=== PATIENT | female | born 1995 | race Caucasian/White ===

== ENCOUNTER 2017-08-21 20:35 | Emergency (ER) | payer BC, OTHER ==
[2017-08-21 20:42] VITALS: BMI 25.2
[2017-08-21 20:49] VITALS: TEMP 100.1
[2017-08-21] MEDS ORDERED: Sodium Chloride 0.9% 1,000 ML IV STA (20:51)
[2017-08-21] MEDS ORDERED: Morphine 4 mg/ml ISec IVP STA (20:51)
--- NOTE | 2017-08-21 20:59 | ED PDOC ---
Arrival/HPI - General Chief Complaint: Dental Pain Time Seen by Provider: 08/21/17 20:51 Historian: Patient - History of Present Illness Narrative History of Present Illness (Text): 08/21/17 20:50 Velma Polo is a 22 year old female, who presents to the emergency department complaining of lower jaw pain today since she had two wisdom teeth removed. Patient reports she has pain and swelling and has been taking tylenol and codeine and antibiotics that were prescribed by her dentist today. Patient denies any fever, headache, shortness of breath, nausea, vomiting or other complaints. 08/21/17 22:26 Time/Duration: 4-6 hours Symptom Onset: Sudden Symptom Course: Unchanged Past Medical History - Provider Review Nursing Documentation Reviewed: Yes - Past History Past History: No Previous - Infectious Disease Hx of Infectious Diseases: None - Tetanus Immunization Tetanus Immunization: Up to Date - Past Medical History Past Medical History: No Previous - Pulmonary Hx Respiratory Disorders: No - Psychiatric Hx Psychophysiologic Disorder: No Hx Anxiety: No Hx Bipolar Disorder: No Hx Depression: No Hx Emotional Abuse: No Hx Hallucinations: No Hx Panic Disorder: No Hx Post Traumatic Stress Disorder: No Hx Psychosis: No Hx Physical Abuse: No Hx Schizophrenia: No Hx Sexual Abuse: No Hx Substance Use: Yes - Past Surgical History Past Surgical History: No Previous - Anesthesia Hx Anesthesia: No Hx Anesthesia Reactions: No Hx Malignant Hyperthermia: No - Suicidal Assessment Feels Threatened In Home Enviroment: No Family/Social History - Physician Review Nursing Documentation Reviewed: Yes Family/Social History: Unknown Family HX Smoking Status: Current Some Days Smoker Hx Alcohol Use: Yes Frequency of alcohol use: Socially Hx Substance Use: Yes Substance used: marijuana Hx Substance Use Treatment: No Allergies/Home Meds Allergies/Adverse Reactions: Allergies No Known Allergies Allergy (Verified 07/30/14 02:06) Home Medications: Home Meds Medication Instructions Recorded Confirmed Acetaminophen with Codeine 1 tab PO Q4H PRN 08/21/17 08/21/17 [Tylenol with Codeine #3 Tablet] Amoxicillin [Amoxil 500 mg Cap] 1 cap PO TID 08/21/17 08/21/17 Review of Systems - Review of Systems Constitutional: absent: Fevers ENT: Other (2 wisdome teeth removed today from lower jaw) Respiratory: absent: SOB, Cough Cardiovascular: absent: Chest Pain Gastrointestinal: absent: Abdominal Pain, Diarrhea, Nausea, Vomiting Genitourinary Female: absent: Dysuria, Frequency Musculoskeletal: absent: Back Pain, Neck Pain Neurological: absent: Headache, Dizziness Physical Exam Vital Signs Reviewed: Yes Vital Signs Temp Pulse Resp BP Pulse Ox 08/21/17 22:25 76 18 128/74 99 08/21/17 20:48 100.1 F H 65 20 126/90 100 Temperature: Febrile Blood Pressure: Normal Pulse: Regular Respiratory Rate: Normal Appearance: Positive for: Well-Appearing, Non-Toxic, Comfortable Pain Distress: None Mental Status: Positive for: Alert and Oriented X 3 - Systems Exam Head: Present: Atraumatic, Normocephalic Pupils: Present: PERRL Conjunctiva: Present: Normal Mouth: Present: Moist Mucous Membranes, Normal Tounge, Normal Teeth, Other (one surgical incision to left lower posterior tooth. no erythema or discharge. Lower facial swelling) Pharnyx: No: ERYTHEMA, EXUDATE, Peritonsilar Swelling Neck: Present: Normal Range of Motion Lower Extremity: Present: Normal Inspection. No: Edema Neurological: Present: GCS=15, CN II-XII Intact, Speech Normal Skin: Present: Warm, Dry, Normal Color. No: Rashes Psychiatric: Present: Alert, Oriented x 3, Normal Insight, Normal Concentration Medical Decision Making ED Course and Treatment: 08/21/17 Impression: 22 year old female with lower facial swelling and pain s/p wisdom teeth removal today Plan: -- Morphine and Sodium Chloride -- Reassess and disposition Progress Notes: 08/21/17 21:37 Patient was given detailed return instructions. Patient phonating normally, protecting airway and tolerating secretions. Instructed to continue taking antibiotics and pain medication and follow-up with dentist. - Medication Orders Current Medication Orders: Discontinued Medications Sodium Chloride (Sodium Chloride 0.9%) 1,000 mls @ 999 mls/hr IV .Q1H1M STA Stop: 08/21/17 21:51 Last Admin: 08/21/17 21:02 Dose: 999 mls/hr eMAR Start Stop Document 08/21/17 21:02 OSWALDO (Rec: 08/21/17 21:02 OSWALDO [id number]) Intravenous Solution Start Date 08/21/17 Start Time 21:02 End Date 08/21/17 End time 22:02 Total Infusion Time 60 Morphine Sulfate (Morphine) 4 mg IVP STAT STA Stop: 08/21/17 20:52 Last Admin: 08/21/17 21:01 Dose: 4 mg MAR Pain Assessment Document 08/21/17 21:01 OSWALDO (Rec: 08/21/17 21: OSWALDO [id number]) Pain Reassessment Is this a pain reassessment? No IVP Administration Document 08/21/17 21: OSWALDO (Rec: 08/21/17 21: OSWALDO [id number]) Charges for Administration # of IVP Administrations 1 - Scribe Statement The provider has reviewed the documentation as recorded by the Scribe Flores Johnson Provider Scribe Attestation: All medical record entries made by the Scribe were at my direction and personally dictated by me. I have reviewed the chart and agree that the record accurately reflects my personal performance of the history, physical exam, medical decision making, and the department course for this patient. I have also personally directed, reviewed, and agree with the discharge instructions and disposition. Disposition/Present on Arrival - Present on Arrival Any Indicators Present on Arrival: No History of DVT/PE: No History of Uncontrolled Diabetes: No Urinary Catheter: No History of Decub. Ulcer: No History Surgical Site Infection Following: None - Disposition Have Diagnosis and Disposition been Completed?: Yes Diagnosis: S/P wisdom tooth extraction, Mouth pain Disposition: HOME/ ROUTINE Disposition Time: 21:39 Patient Plan: Discharge Condition: GOOD Additional Instructions: Take full course of antibiotics. Take percocet instead of tylenol with codeine as needed for pain. Return to ED if condition worsens. Follow-up with dentist within 2 days. Prescriptions: oxyCODONE/Acetaminophen [Percocet 5/325 mg Tab] 1 ea PO Q6 PRN #10 tab PRN Reason: Pain, Severe (8-10) Referrals: PCP,NO [Primary Care Provider] - Follow up with primary Forms: [employer] ([place]inyar[place]anda), WORK NOTE
[2017-08-21 22:26] VITALS: BP 128/74; PULSE 76; RESP 18; O2SAT 99
== END 2017-08-21 22:24 | disposition home or self-care (01) ==
LOC: ED 20:35
DX: K13.79 Other lesions of oral mucosa (principal); K08.409 Partial loss of teeth, unspecified cause, unspecified class
CPT/HCPCS: 96361; 96374; 99282; J2270; J7040

== ENCOUNTER 2018-06-27 09:57 | Emergency (ER) | payer BC, MEDICAID ==
[2018-06-27 10:19] VITALS: RESP 18; BMI 23.0
[2018-06-27] MEDS ORDERED: Albuterol-Ipratrop 3 mg / 0.5 (3 ml) UD IH STA (10:23)
--- NOTE | 2018-06-27 10:24 | ED PDOC ---
Arrival/HPI - General Chief Complaint: Cough, Cold, Congestion Time Seen by Provider: 06/27/18 10:21 Historian: Patient - History of Present Illness Narrative History of Present Illness (Text): 06/27/18 10:23 This 23 yo female who presents to this ED c/o cough, wheezing, chest congestion x 2 weeks. Patient denies sob, cp, fever, recent travel, sick contact, skin rash, or abnormal gait. Patient has never been hospitalized for asthma, or intubated. PERC negative for PE Time/Duration: Other (see hpi) Context: Home Past Medical History - Provider Review Nursing Documentation Reviewed: Yes - Past History Past History: No Previous - Infectious Disease Hx of Infectious Diseases: None - Tetanus Immunization Tetanus Immunization: Up to Date - Past Medical History Past Medical History: No Previous - Pulmonary Hx Asthma: Yes - Psychiatric Hx Psychophysiologic Disorder: No Hx Anxiety: No Hx Bipolar Disorder: No Hx Depression: No Hx Emotional Abuse: No Hx Hallucinations: No Hx Panic Disorder: No Hx Post Traumatic Stress Disorder: No Hx Psychosis: No Hx Physical Abuse: No Hx Schizophrenia: No Hx Sexual Abuse: No Hx Substance Use: Yes - Past Surgical History Past Surgical History: No Previous - Anesthesia Hx Anesthesia: No Hx Anesthesia Reactions: No Hx Malignant Hyperthermia: No - Suicidal Assessment Feels Threatened In Home Enviroment: No Family/Social History - Physician Review Nursing Documentation Reviewed: Yes Family/Social History: Other (noncontributory) Smoking Status: Former Smoker Hx Alcohol Use: Yes Frequency of alcohol use: Socially Hx Substance Use: Yes Substance used: marijuana Hx Substance Use Treatment: No Allergies/Home Meds Allergies/Adverse Reactions: Allergies No Known Allergies Allergy (Verified 07/30/14 02:06) Home Medications: Home Meds Medication Instructions Recorded Confirmed Fluticasone Propionate [Flovent 44 mcg IH PRN PRN 06/27/18 06/27/18 Hfa] Review of Systems - Review of Systems Constitutional: Normal. absent: Fatigue, Weight Change, Fevers Eyes: Normal ENT: Normal Respiratory: Cough, Wheezing. absent: SOB, Sputum Cardiovascular: Normal Gastrointestinal: Normal Genitourinary Female: Normal Musculoskeletal: Normal Skin: Normal Neurological: Normal Endocrine: Normal Hemo/Lymphatic: Normal Psychiatric: Normal Physical Exam Vital Signs Temp Pulse Resp BP Pulse Ox 06/27/18 10:10 97.9 F 76 18 141/84 99 Temperature: Afebrile Blood Pressure: Normal Pulse: Regular Respiratory Rate: Normal Appearance: Positive for: Well-Appearing, Non-Toxic, Comfortable Pain Distress: None Mental Status: Positive for: Alert and Oriented X 3 - Systems Exam Head: Present: Atraumatic, Normocephalic Pupils: Present: PERRL Extroacular Muscles: Present: EOMI Conjunctiva: Present: Normal Mouth: Present: Moist Mucous Membranes Neck: Present: Normal Range of Motion Respiratory/Chest: Present: Wheezes. No: Respiratory Distress, Accessory Muscle Use, Decreased Breath Sounds, Rales, Retracting, Rhonchi, Tachypneic, Tender to Palpation Cardiovascular: Present: Regular Rate and Rhythm, Normal S1, S2. No: Murmurs Abdomen: No: Tenderness, Distention, Peritoneal Signs, Rebound, Guarding Back: Present: Normal Inspection. No: CVA Tenderness Upper Extremity: Present: Normal Inspection, Normal ROM. No: Cyanosis, Edema Lower Extremity: Present: Normal Inspection, Normal ROM. No: Edema Neurological: Present: GCS=15, CN II-XII Intact, Speech Normal Skin: Present: Warm, Dry, Normal Color. No: Rashes Psychiatric: Present: Alert, Oriented x 3, Normal Insight, Normal Concentration Medical Decision Making ED Course and Treatment: 06/27/18 12:20 Re-evaluation. Patient feels better. Discussed results and plan with patient who expresses understanding. All questions answered and there is agreement with the plan to discharge home with instructions. Patient stable for discharge. Return if symptoms persist or worsen. 06/27/18 12:35 I reviewed risk of taking Prednisone not yeimy but including AVN, dm, glaucoma, osteoporosis. Patient understood risk, and agreed to take medication. Re-evaluation Time: 12:22 Reassessment Condition: Re-examined, Improved - RAD Interpretation Radiology Orders: 06/27/18 10:22 CHEST TWO VIEWS (PA/LAT) [RAD] Stat - Medication Orders Current Medication Orders: Discontinued Medications Albuterol/Ipratropium (Duoneb 3 Mg/0.5 Mg (3 Ml) Ud) 3 ml IH STAT STA Stop: 06/27/18 10:24 Last Admin: 06/27/18 10:43 Dose: 3 ml Prednisone (Prednisone Tab) 60 mg PO STAT ONE Stop: 06/27/18 10:24 Last Admin: 06/27/18 10:43 Dose: 60 mg Disposition/Present on Arrival - Present on Arrival Any Indicators Present on Arrival: No History of DVT/PE: No History of Uncontrolled Diabetes: No Urinary Catheter: No History of Decub. Ulcer: No History Surgical Site Infection Following: None - Disposition Have Diagnosis and Disposition been Completed?: Yes Diagnosis: Asthma exacerbation Disposition: HOME/ ROUTINE Disposition Time: 12:24 Patient Plan: Discharge Condition: GOOD Discharge Instructions (ExitCare): Asthma, Adult (DC) Additional Instructions: Call private doctor for follow up visit in 1-2 days. Take medication as instructed. Return to emergency if symptoms worsen. Prescriptions: Albuterol Sulfate [Ventolin Hfa] 2 puff IH Q6H PRN #1 packet PRN Reason: Wheezing predniSONE [predniSONE Tab] 40 mg PO DAILY #6 tab Referrals: Phi Carter MD [Primary Care Provider] - Follow up with primary Forms: [employer] (Greenlandic)
[2018-06-27 12:27] VITALS: O2SAT 100
[2018-06-27 12:45] VITALS: BP 138/83; PULSE 70; TEMP 98
--- NOTE | 2018-06-27 16:03 | RAD ---
Date of service: 06/27/2018 HISTORY: cough COMPARISON: Comparison chest 10/02/2014 TECHNIQUE: Chest PA and lateral FINDINGS: LUNGS: No active pulmonary disease. PLEURA: No significant pleural effusion identified. No pneumothorax apparent. CARDIOVASCULAR: Normal. OSSEOUS STRUCTURES: No significant abnormalities. VISUALIZED UPPER ABDOMEN: Normal. OTHER FINDINGS: None. IMPRESSION: No active disease.
== END 2018-06-27 12:45 | disposition home or self-care (01) ==
LOC: ED 09:57
DX: J45.901 Unspecified asthma with (acute) exacerbation (principal); Z87.891 Personal history of nicotine dependence

== ENCOUNTER 2018-07-15 09:48 | Emergency (ER) | payer MEDICAID, OTHER ==
[2018-07-15 10:20] VITALS: BMI 23.9
[2018-07-15 10:24] VITALS: TEMP 98.5
[2018-07-15] MEDS ORDERED: Famotidine 20mg/50ml 20 MG in Premixed IV 50 EA IVPB STA (10:48)
--- NOTE | 2018-07-15 10:59 | ED PDOC ---
Arrival/HPI - General Chief Complaint: GI Problem Time Seen by Provider: 07/15/18 10:44 Historian: Patient - History of Present Illness Narrative History of Present Illness (Text): 07/15/18 10:44 23 year old female, with no significant past medical history, presents to the emergency department complaining of nausea and vomiting that began yesterday. Patient's last menstrual period was a month ago and it was normal. Patient denies any fever, chills, chest pain, shortness of breath, abdominal pain, diarrhea, urinary symptoms, back pain, neck pain, headache, dizziness, or any other complaints. Time/Duration: 24 hours Symptom Onset: Gradual Symptom Course: Unchanged Activities at Onset: Light Context: Home Past Medical History - Provider Review Nursing Documentation Reviewed: Yes - Past History Past History: No Previous - Infectious Disease Hx of Infectious Diseases: None - Tetanus Immunization Tetanus Immunization: Up to Date - Past Medical History Past Medical History: No Previous - Cardiac Hx Cardiac Disorders: Yes - Pulmonary Hx Asthma: Yes - Psychiatric Hx Psychophysiologic Disorder: No Hx Anxiety: No Hx Bipolar Disorder: No Hx Depression: No Hx Emotional Abuse: No Hx Hallucinations: No Hx Panic Disorder: No Hx Post Traumatic Stress Disorder: No Hx Psychosis: No Hx Physical Abuse: No Hx Schizophrenia: No Hx Sexual Abuse: No Hx Substance Use: Yes - Past Surgical History Past Surgical History: No Previous - Anesthesia Hx Anesthesia: No Hx Anesthesia Reactions: No Hx Malignant Hyperthermia: No - Suicidal Assessment Feels Threatened In Home Enviroment: No Family/Social History - Physician Review Nursing Documentation Reviewed: Yes Family/Social History: No Known Family HX Smoking Status: Current Some Days Smoker Hx Alcohol Use: Yes Hx Substance Use: Yes Substance used: marijuana Hx Substance Use Treatment: No Allergies/Home Meds Allergies/Adverse Reactions: Allergies No Known Allergies Allergy (Verified 07/15/18 10:24) Home Medications: Home Meds Medication Instructions Recorded Confirmed Fluticasone Propionate [Flovent 44 mcg IH PRN PRN 06/27/18 07/15/18 Hfa] Review of Systems - Review of Systems Constitutional: absent: Fevers, Other (Chills) Respiratory: absent: SOB Cardiovascular: absent: Chest Pain Gastrointestinal: Nausea, Vomiting. absent: Abdominal Pain, Diarrhea Genitourinary Female: absent: Dysuria, Frequency, Hematuria Musculoskeletal: absent: Back Pain, Neck Pain Neurological: absent: Headache, Dizziness Physical Exam Vital Signs Reviewed: Yes Vital Signs Temp Pulse Resp BP Pulse Ox 07/15/18 14:25 67 18 117/62 97 07/15/18 12:32 64 16 110/65 100 07/15/18 10:19 98.5 F 68 18 124/85 97 Temperature: Afebrile Blood Pressure: Normal Pulse: Regular Respiratory Rate: Normal Appearance: Positive for: Well-Appearing, Non-Toxic, Comfortable Pain Distress: None Mental Status: Positive for: Alert and Oriented X 3 - Systems Exam Head: Present: Atraumatic, Normocephalic Pupils: Present: PERRL Extroacular Muscles: Present: EOMI Conjunctiva: Present: Normal Mouth: Present: Moist Mucous Membranes Neck: Present: Normal Range of Motion Respiratory/Chest: Present: Clear to Auscultation, Good Air Exchange. No: Respiratory Distress, Accessory Muscle Use Cardiovascular: Present: Regular Rate and Rhythm, Normal S1, S2. No: Murmurs Abdomen: No: Tenderness, Distention, Peritoneal Signs Back: Present: Normal Inspection Upper Extremity: Present: Normal Inspection. No: Cyanosis, Edema Lower Extremity: Present: Normal Inspection. No: Edema Neurological: Present: GCS=15, CN II-XII Intact, Speech Normal Skin: Present: Warm, Dry, Normal Color. No: Rashes Psychiatric: Present: Alert, Oriented x 3, Normal Insight, Normal Concentration Medical Decision Making ED Course and Treatment: 07/15/18 10:44 Impression: 23 year old female presents complaining of nausea and vomiting that began yesterday. Plan: -- Labs -- Pepcid, Zofran Inj -- Urine Culture -- HCG, Qualitative urine, Urinalysis -- Transvaginal US -- Reassess and disposition Progress Notes: PROCEDURE: Transvaginal US Dictator : Bayron Schrader MD Report Date : 07/15/2018 14:13:44 IMPRESSION: 4 mm questionable intrauterine gestational sac without identifiable pole or yolk sac. Out of range for determination of age. No subchorionic hemorrhage. Follow-up with transvaginal pelvic ultra sound and serial beta HCG advised. 07/15/18 15:06 Patient was informed that she is and recommended to followup with OB/ [facility]. On re-evaluation, patient feels better and is in no acute distress. I have discussed the results and plan with the patient, who expresses understanding. Patient in agreement with plan to be discharged home. Patient is stable for discharge. Patient was instructed to follow up with physician or return if symptoms worsen or new concerning symptoms arise. - Lab Interpretations Lab Results: 07/15/18 11:40 07/15/18 11:40 Lab Results 07/15/18 11:40: Beta HCG, Quant 3399.00 H 07/15/18 11:40: Sodium 139, Potassium 5.3 H, Chloride 103, Carbon Dioxide 27, Anion Gap 13, BUN 9, Creatinine 0.6 L, Est GFR ( Amer) > 60, Est GFR (Non -Af Amer) > 60, Random Glucose 99, Calcium 9.7, Total Bilirubin 0.5, AST 28, ALT 25, Alkaline Phosphatase 76, Total Protein 7.7, Albumin 4.5, Globulin 3.2, Albumin/Globulin Ratio 1.4, Lipase 23 07/15/18 11:40: WBC 8.8, RBC 4.49, Hgb 13.7, Hct 40.9, MCV 91.1, MCH 30.5, MCHC 33.5, RDW 13.6, Plt Count 225, MPV 9.5, Gran % 66.0, Lymph % (Auto) 29.8, [place] % (Auto) 3.7, Eos % (Auto) 0.3 L, Baso % (Auto) 0.2, Gran # 5.82, Lymph # (Auto ) 2.6, [place] # (Auto) 0.3, Eos # (Auto) 0.0, Baso # (Auto) 0.02 07/15/18 10:40: Urine Color Yellow, Urine Appearance Clear, Urine pH 7.0, Ur Specific [place] <= 1.005, Urine Protein Negative, Urine Glucose (UA) Negative, Urine Ketones Negative, Urine Blood Negative, Urine Nitrate Negative, Urine Bilirubin Negative, Urine Urobilinogen 0.2, Ur Leukocyte Esterase Moderate H, Urine RBC 0 - 2, Urine WBC 25 - 30, Ur Epithelial Cells Many, Urine Bacteria Many, Urine HCG, Qual Positive I have reviewed the lab results: Yes - RAD Interpretation Radiology Orders: 07/15/18 13:09 TRANSVAGINAL [US] Stat - Medication Orders Current Medication Orders: Discontinued Medications Famotidine 20 mg/ (Miscellaneous) 50 mls @ 100 mls/hr IVPB STAT STA Stop: 07/15/18 11:17 Last Admin: 07/15/18 12:11 Dose: 100 mls/hr eMAR Start Stop Document 07/15/18 12:11 GMD (Rec: 07/15/18 12:11 GMD [id number]) Intravenous Solution Start Date 07/15/18 Start Time 12:11 End Date 07/15/18 End time 12:41 Total Infusion Time 30 Ceftriaxone Sodium (Rocephin 1 Gram Ivpb) 1 gm in 100 mls @ 200 mls/hr IVPB STAT STA Stop: 07/15/18 12:01 Last Admin: 07/15/18 12:11 Dose: 200 mls/hr eMAR Start Stop Document 07/15/18 12:11 GMD (Rec: 07/15/18 12:11 GMD [id number]) Intravenous Solution Start Date 07/15/18 Start Time 12:11 End Date 07/15/18 End time 12:41 Total Infusion Time 30 Ondansetron HCl (Zofran Inj) 4 mg IVP STAT STA Stop: 07/15/18 10:47 Last Admin: 07/15/18 12:11 Dose: 4 mg IVP Administration Document 07/15/18 12:11 GMD (Rec: 07/15/18 12:11 GMD [id number]) Charges for Administration # of IVP Administrations 1 - Scribe Statement The provider has reviewed the documentation as recorded by the Hannah Thomas Provider Scribe Attestation: All medical record entries made by the Ottonielibblanca were at my direction and personally dictated by me. I have reviewed the chart and agree that the record accurately reflects my personal performance of the history, physical exam, medical decision making, and the department course for this patient. I have also personally directed, reviewed, and agree with the discharge instructions and disposition. Disposition/Present on Arrival - Present on Arrival History of DVT/PE: No History of Uncontrolled Diabetes: No Urinary Catheter: No History of Decub. Ulcer: No History Surgical Site Infection Following: None - Disposition Diagnosis: Urinary tract infection affecting , Early stage of Disposition: HOME/ ROUTINE Patient Problems: Current Active Problems Problem Status Onset Early stage of Acute Urinary tract infection affecting Acute Condition: GOOD Discharge Instructions (ExitCare): Urinary Tract Infection, Adult (DC), - The First Month Additional Instructions: Follow up with Dr [facility] and call for an appointment #[phone] and take macrobid as directed. Prescriptions: Nitrofurantoin Macrocrystals [Macrobid] 100 mg PO Q12 #14 cap Referrals: Luther Nuno MD [Staff Provider] - Follow up with primary Forms: [employer] (Serbian)
[2018-07-15 11:04] LABS: URINE BILIRUBIN NEGATIVE (NEGATIVE); URINE BLOOD NEGATIVE (NEGATIVE); URINE GLUCOSE (UA) NEGATIVE (NEGATIVE); URINE LEUKOCYTE ESTERASE MODERATE Leu/uL (NEGATIVE); URINE PROTEIN NEGATIVE mg/dL (<30 mg/dL); URINE UROBILINOGEN 0.2 E.U./dL (<1 E.U./dL)
[2018-07-15 11:05] LABS: URINE APPEARANCE CLEAR (CLEAR); URINE COLOR YELLOW (YELLOW)
[2018-07-15 11:18] LABS: HCG,QUALITATIVE URINE POSITIVE (NEGATIVE)
[2018-07-15 11:20] LABS: URINE RBC 0 - 2 /hpf (0-2)
[2018-07-15 11:21] LABS: URINE BACTERIA MANY (NEG); URINE EPITHELIAL CELLS MANY /hpf (0-5); URINE WBC 25 - 30 /hpf (0-6)
[2018-07-15] MEDS ORDERED: cefTRIAXone (Rocephin) 2 gm Inj IVPB ONE (11:29)
[2018-07-15] MEDS ORDERED: cefTRIAXone 1 GM/100 ML BAG IVPB STA (11:32)
[2018-07-15 12:11] LABS: BASO # 0.02 K/mm3 (0.0-2.0); BASO % 0.2 % (0.0-3.0); EOS % 0.3 % (1.5-5.0); GRAN # 5.82 (1.4-6.5); HEMOGLOBIN 13.7 g/dL (12.0-16.0); LYMPH # 2.6 (1.2-3.4); LYMPH % 29.8 % (22.0-35.0); MEAN CELL VOLUME 91.1 fl (80.0-105.0); MEAN CORPUSCULAR HEMOGLOBIN 30.5 pg (25.0-35.0); MEAN CORPUSCULAR HGB CONC 33.5 g/dl (31.0-37.0); MEAN PLATELET VOLUME 9.5 fl (7.0-11.0); MONO # 0.3 (0.1-0.6); MONO % 3.7 % (1.0-6.0); RBC 4.49 10^6/uL (3.5-6.1); RED CELL DISTRIBUTION WIDTH 13.6 % (11.5-14.5); WHITE BLOOD COUNT 8.8 10^3/ul (4.5-11.0)
[2018-07-15 12:21] LABS: ALB/GLOB RATIO 1.4 (1.1-1.8); ALBUMIN 4.5 g/dL (3.0-4.8); ALT/SGPT 25 U/L (7-56); AST/SGOT 28 U/L (14-36); BLOOD UREA NITROGEN 9 mg/dL (7-21); CALCIUM 9.7 mg/dL (8.4-10.5); GFR NON-AFRICAN AMERICAN > 60; LIPASE 23 U/L (23-300)
--- NOTE | 2018-07-15 14:15 | US ---
Date of service: 07/15/2018 HISTORY: r/o ectopic COMPARISON: None available. TECHNIQUE: Transabdominal and transvaginal FINDINGS: UTERUS: Measures 9.6 x 4.0 x 5.4 cm. Normal in size and appearance. No fibroid or other mass lesion seen. ENDOMETRIUM: Measures 16 mm in diameter. Questionable small intrauterine gestational sac, 4 mm diameter. Out of range for determination of gestational age. No pole or yolk sac evident. No subchorionic hemorrhage. Follow-up with transvaginal pelvic ultrasound and serial beta HCG is advised. Cannot exclude ectopic gestation on the basis of this examination. CERVIX: No cervical abnormality identified. RIGHT OVARY: Measures 3.2 x 1.6 x 2.7 cm. No solid mass. Normal flow. 1.3 cm physiologic cyst LEFT OVARY: Measures 3.2 x 2.0 x 2.9 cm. No solid mass. Normal flow. FREE FLUID: No significant free fluid noted. OTHER FINDINGS: None. IMPRESSION: 4 mm questionable intrauterine gestational sac without identifiable pole or yolk sac. Out of range for determination of age. No subchorionic hemorrhage. Follow-up with transvaginal pelvic ultra sound and serial beta HCG advised.
[2018-07-15 14:28] VITALS: BP 117/62; PULSE 67; RESP 18; O2SAT 97
== END 2018-07-15 15:23 | disposition home or self-care (01) ==
LOC: ED 09:48
DX: O23.41 Unspecified infection of urinary tract in pregnancy, first trimester (principal); Z3A.00 Weeks of gestation of pregnancy not specified
CPT/HCPCS: 76830; 80053; 81001; 83690; 84702; 84703; 85025; 87086; 96365; 96368; 96375; 99285; J0696; J2405

== ENCOUNTER 2018-11-30 08:15 | Emergency (ER) | payer OTHER ==
[2018-11-30 08:19] VITALS: BMI 24.7
[2018-11-30 08:31] VITALS: BP 133/78; PULSE 79; RESP 16; TEMP 98; O2SAT 99
--- NOTE | 2018-11-30 08:39 | ED PDOC ---
Arrival/HPI - General Chief Complaint: Cough, Cold, Congestion Historian: Patient - History of Present Illness Narrative History of Present Illness (Text): 11/30/18 08:36 23 year old female, smoker, with no significant past medical history, presents to the emergency department complaining of cough, nasal congestion, and URI symptoms for the past two weeks. Patient states she has also been experiencing associated sinus pain, yellow discharge, and wheezing. She denies fevers, chills, headache, dizziness, chest pain, shortness of breath, dyspnea on exertion, abdominal pain, nausea, vomiting, diarrhea, back pain, neck pain, or any other complaint. Time/Duration: > week (2 weeks) Symptom Onset: Gradual Symptom Course: Unchanged Activities at Onset: Light Context: Home Past Medical History - Provider Review Nursing Documentation Reviewed: Yes - Past History Past History: No Previous - Infectious Disease Hx of Infectious Diseases: None - Tetanus Immunization Tetanus Immunization: Up to Date - Past Medical History Past Medical History: No Previous - Cardiac Hx Cardiac Disorders: Yes - Pulmonary Hx Asthma: Yes - Psychiatric Hx Psychophysiologic Disorder: No Hx Anxiety: No Hx Bipolar Disorder: No Hx Depression: No Hx Emotional Abuse: No Hx Hallucinations: No Hx Panic Disorder: No Hx Post Traumatic Stress Disorder: No Hx Psychosis: No Hx Physical Abuse: No Hx Schizophrenia: No Hx Sexual Abuse: No Hx Substance Use: Yes - Past Surgical History Past Surgical History: No Previous - Anesthesia Hx Anesthesia: No Hx Anesthesia Reactions: No Hx Malignant Hyperthermia: No - Suicidal Assessment Feels Threatened In Home Enviroment: No Family/Social History - Physician Review Nursing Documentation Reviewed: Yes Family/Social History: No Known Family HX Smoking Status: Current Some Days Smoker Hx Alcohol Use: Yes Hx Substance Use: Yes Substance used: marijuana Hx Substance Use Treatment: No Allergies/Home Meds Allergies/Adverse Reactions: Allergies No Known Allergies Allergy (Verified 11/30/18 08:34) Review of Systems - Physician Review All systems were reviewed & negative as marked: Yes - Review of Systems Constitutional: absent: Fatigue, Fevers ENT: Rhinorrhea, Sinus Congestion Respiratory: Cough, Sputum (yellow discharge), Wheezing. absent: SOB Cardiovascular: absent: Chest Pain Gastrointestinal: absent: Abdominal Pain, Diarrhea, Nausea, Vomiting Genitourinary Female: absent: Dysuria Musculoskeletal: absent: Back Pain, Neck Pain Neurological: absent: Headache, Dizziness Physical Exam Vital Signs Reviewed: Yes Vital Signs Temp Pulse Resp BP Pulse Ox 11/30/18 08:30 98.0 F 79 16 133/78 99 Temperature: Afebrile Blood Pressure: Normal Pulse: Regular Respiratory Rate: Normal Appearance: Positive for: Well-Appearing, Non-Toxic, Comfortable Pain Distress: None Mental Status: Positive for: Alert and Oriented X 3 - Systems Exam Head: Present: Atraumatic, Normocephalic Pupils: Present: PERRL Extroacular Muscles: Present: EOMI Conjunctiva: Present: Normal Ears: Present: NORMAL TM, Normal Canal. No: Erythema, TM Bulging Mouth: Present: Moist Mucous Membranes Pharnyx: No: ERYTHEMA, EXUDATE, TONSILS ENLARGED Nose (Internal): Present: Other (congested) Neck: Present: Normal Range of Motion Respiratory/Chest: No: Good Air Exchange, Respiratory Distress, Accessory Muscle Use, Wheezes, Decreased Breath Sounds, Rales, Retracting, Rhonchi, Tachypneic Cardiovascular: Present: Regular Rate and Rhythm, Normal S1, S2. No: Murmurs Abdomen: No: Tenderness, Distention, Peritoneal Signs Back: Present: Normal Inspection Upper Extremity: Present: Normal Inspection. No: Cyanosis, Edema Lower Extremity: Present: Normal Inspection. No: Edema Neurological: Present: GCS=15, CN II-XII Intact, Speech Normal Skin: Present: Warm, Dry, Normal Color. No: Rashes Psychiatric: Present: Alert, Oriented x 3, Normal Insight, Normal Concentration Medical Decision Making ED Course and Treatment: 11/30/18 08:35 Impression: 23 year old female who presents to the emergency department cmoplaining of cough, nasal congestion, and URI symptoms. Plan: -- POC Urine test -- Reassess and disposition Prior Visits: Notes and results from previous visits were reviewed. Progress Notes: 11/30/18 08:56 Patient's hCG is positive. LMP October 09. 3 para 1 abortions 1. Discussed with patient that her test is positive and she will need to have symptomatic treatment only. Tylenol as directed on bottle as needed. Plain Robitussin as directed on bottle as needed. She may continue her albuterol. Follow up with her PMD and [facility] [employer]. Follow up in ER as needed. - Scribe Statement The provider has reviewed the documentation as recorded by the Hannah Bryant Provider Scribe Attestation: All medical record entries made by the Scribe were at my direction and personally dictated by me. I have reviewed the chart and agree that the record accurately reflects my personal performance of the history, physical exam, medical decision making, and the department course for this patient. I have also personally directed, reviewed, and agree with the discharge instructions and disposition. Disposition/Present on Arrival - Present on Arrival Any Indicators Present on Arrival: No History of DVT/PE: No History of Uncontrolled Diabetes: No Urinary Catheter: No History of Decub. Ulcer: No History Surgical Site Infection Following: None - Disposition Have Diagnosis and Disposition been Completed?: Yes Diagnosis: Positive test, Upper respiratory infection Disposition: HOME/ ROUTINE Disposition Time: 08:58 Patient Plan: Discharge Condition: GOOD Discharge Instructions (ExitCare): Viral Upper Respiratory Infection, Adult (DC), Tests, Symptoms Additional Instructions: Plain Tylenol as directed on bottle as needed. Plain Robitussin as directed on bottle as needed. Continue your albuterol. 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 Follow up in ER as needed. Forms: [employer] (I[place]ic)
== END 2018-11-30 09:01 | disposition home or self-care (01) ==
LOC: ED 08:15
DX: J06.9 Acute upper respiratory infection, unspecified (principal); Z32.01 Encounter for pregnancy test, result positive